=== PATIENT | male | born 1995 | race African-American/Black ===

== ENCOUNTER 2025-07-10 19:39 | Emergency (ER) | payer OTHER ==
[~2025-07-10] VITALS: Ht 185.4 cm; Wt 129.3 kg
[2025-07-10 19:56] VITALS: TEMP 98
[2025-07-10] MEDS ORDERED: IBUP-1953 PO (20:09)
[2025-07-10 20:16] VITALS: BP 125/85; O2SAT 96
== END 2025-07-10 20:17 | disposition home or self-care (01) ==
LOC: ER 19:49
DX: M54.50 Low back pain, unspecified (principal); I10 Essential (primary) hypertension; Z88.1 Allergy status to other antibiotic agents; V43.52XA Car driver injured in collision with other type car in traffic accident, initial encounter; Y93.89 Activity, other specified; Y92.410 Unspecified street and highway as the place of occurrence of the external cause; Y99.8 Other external cause status